=== PATIENT | female | born 1955 | race Two or more races ===

== ENCOUNTER → 2017-11-13 | Outpatient (CLI) | payer OTHER | END | disposition home or self-care (01) | LOC: MAMO-SONO 08:15 | DX: N62 Hypertrophy of breast (principal); Z12.31 Encounter for screening mammogram for malignant neoplasm of breast ==

== ENCOUNTER 2017-11-21 07:30 | Outpatient (CLI) | payer OTHER | END 2017-11-21 18:05 | disposition home or self-care (01) | LOC: LAB 07:30 | DX: I10 Essential (primary) hypertension (principal); E11.9 Type 2 diabetes mellitus without complications; E03.8 Other specified hypothyroidism; E78.2 Mixed hyperlipidemia; M81.0 Age-related osteoporosis without current pathological fracture ==

== ENCOUNTER 2018-01-15 09:30 | Outpatient (CLI) | payer OTHER | END 2018-01-15 09:46 | disposition home or self-care (01) | LOC: LAB 09:30 | DX: N39.0 Urinary tract infection, site not specified (principal) ==

== ENCOUNTER → 2018-03-18 08:17 | Outpatient (CLI) | payer OTHER | END | disposition home or self-care (01) | LOC: LAB 08:17 | DX: E03.8 Other specified hypothyroidism (principal) ==

== ENCOUNTER 2020-12-26 10:59 | Outpatient (CLI) | payer OTHER | END 2020-12-26 11:25 | disposition home or self-care (01) | LOC: MAMO-SONO 10:59 | PROVIDERS: ATTEND General Practice | DX: R92.1 Mammographic calcification found on diagnostic imaging of breast (principal); Z12.31 Encounter for screening mammogram for malignant neoplasm of breast; E03.8 Other specified hypothyroidism; N64.4 Mastodynia ==

== ENCOUNTER 2023-04-09 12:55 | Outpatient (CLI) | payer OTHER | END 2023-04-09 12:58 | disposition home or self-care (01) | LOC: NUCLEAR 12:55 | PROVIDERS: ATTEND Internal Medicine Cardiovascular Disease | DX: M81.0 Age-related osteoporosis without current pathological fracture (principal) ==

== ENCOUNTER 2024-07-21 10:35 | Outpatient (CLI) | payer OTHER | END 2024-07-21 10:41 | disposition home or self-care (01) | LOC: MAMO-SONO 10:35 | PROVIDERS: ATTEND Obstetrics & Gynecology | DX: N60.11 Diffuse cystic mastopathy of right breast (principal); N60.12 Diffuse cystic mastopathy of left breast; Z12.31 Encounter for screening mammogram for malignant neoplasm of breast ==

== ENCOUNTER 2024-10-20 14:00 | Day surgery (SDC) | payer OTHER ==
[2024-10-12 13:48] VITALS: BP 141/62
[~2024-10-20] VITALS: Ht 162.6 cm; Wt 93.0 kg
[~2024-10-20 14:00] MED LIST: ATORVASTATIN CA10 MG PO; COZAAR50 MG PO; LEVOTHYROXINE25 MCG PO; PEPCID AC20 MG
[2024-10-20] MEDS ORDERED: POVIDONE-IODINE 118 ML BOTT TOP ONE (18:30)
== END 2024-10-20 22:30 | disposition home or self-care (01) ==
LOC: CIR.AMB 14:00
PROVIDERS: ATTEND Obstetrics & Gynecology
DX: N95.0 Postmenopausal bleeding (principal); Z88.2 Allergy status to sulfonamides; Z91.013 Allergy to seafood